=== PATIENT | female | born 1970 | race Two or more races ===

== ENCOUNTER 2018-08-10 18:39 | Emergency (ER) | payer MEDICAID ==
[~2018-08-10] VITALS: Ht 160 cm; Wt 65.8 kg
--- NOTE | 2018-08-10 18:45 | NUR ---
ED Nurse Note: Pt was not being assessed by nurse and went down to CT.
--- NOTE | 2018-08-10 19:06 | NUR ---
ED Nurse Note: Pt came from CT in stable condition.
--- NOTE | 2018-08-10 19:21 | NUR ---
ED Nurse Note: Pt from home BIBA c/o of fall. Pt states that she tripped and fell. Pt denies KO and states that she is not on blood thinner. Pt is AAOx4 respirations are even and unlabored
--- NOTE | 2018-08-10 19:24 | NUR ---
HAND-OFF: Report given to NATHALIE Perkins.
--- NOTE | 2018-08-10 19:38 | NUR ---
ED Nurse Note: Patient is alert and oriented x4has pain in the head 10/10. Patient has at bedside.
[2018-08-10] MEDS ORDERED: Acetaminophen 500mg (ES) tab ORAL ONE (20:00)
[2018-08-10] MEDS ORDERED: Lidocaine 2% MPF 5ml Vial INJ ONE (20:30)
[2018-08-10 20:40] VITALS: BP 120/64
--- NOTE | 2018-08-10 21:53 | Emergency Room Report ---
History of Present Illness General Chief Complaint: Head Injury Source: Patient Present Illness HPI Patient states that she was walking and missed her step on the curb and fell and hit her head on a fence. Denies neck pain. She has no other injuries or complaints. She has pain at the location of the laceration on her scalp. Allergies: Coded Allergies: No Known Allergies (Unverified , 08/10/18) Patient History Past Medical History: see triage record, HTN Social History: Denies: smoking, alcohol use, drug use Now: No Reviewed Nursing Documentation: PMH: Agreed; PSxH: Agreed Nursing Documentation-PMH Past Medical History: No Stated History Review of Systems All Other Systems: negative except mentioned in HPI Physical Exam Vital Signs Date Time Temp Pulse Resp B/P (MAP) Pulse Ox O2 Delivery O2 Flow Rate FiO2 08/10/18 18:20 98.8 82 18 140/82 99 Room Air Sp02 EP Interpretation: reviewed, normal General Appearance: no apparent distress, alert, GCS 15, non-toxic Head: other - 2.5 cm laceration on R. parietal region. Eyes: bilateral eye normal inspection, bilateral eye PERRL ENT: hearing grossly normal, normal pharynx, no angioedema, normal voice Neck: full range of motion, supple/symm/no masses Respiratory: chest non-tender, lungs clear, normal breath sounds, no respiratory distress, no retraction, no accessory muscle use, speaking full sentences Cardiovascular #1: regular rate, rhythm, no edema Gastrointestinal: normal bowel sounds, non tender, soft, non-distended, no guarding, no rebound Rectal: deferred Musculoskeletal: back normal, gait/station normal, normal range of motion, non- tender Neurologic: alert, oriented x3, responsive, motor strength/tone normal, sensory intact, speech normal Psychiatric: judgement/insight normal, memory normal, mood/affect normal, no suicidal/homicidal ideation Skin: well hydrated, other - See above in Head. Medical Decision Making Diagnostic Impression: Primary Impression: Scalp laceration Additional Impressions: Fall Closed head injury ER Course This patient suffered a scalp laceration. The patient underwent CT of the head and there was no evidence of intracranial bleed. Overall, the patient's evaluation was benign. The patient was instructed to have the eren removed in 7-10 days. The patient states her tetanus is up-to-date so this was not updated. The patient is given return precautions and follow-up instructions. CT/MRI/US Diagnostic Results CT/MRI/US Diagnostic Results : Imaging Test Ordered: CT head Impression No acute findings. No ICB, mass effect or edema. Last Vital Signs Date Time Temp Pulse Resp B/P (MAP) Pulse Ox O2 Delivery O2 Flow Rate FiO2 08/10/18 20:40 98.8 65 15 120/64 100 Room Air Status: improved Disposition: HOME, SELF-CARE Condition: Improved Arabella Urias DO Aug 10, 2018 21:53
[2018-08-10] MEDS ORDERED: IBUPROFEN800 MG ORAL (21:55)
[2018-08-10] MEDS ORDERED: ACETAMINOPHEN500 M3 ORAL (21:55)
[2018-08-10 22:09] VITALS: BP 114/79
--- NOTE | 2018-08-10 22:09 | NUR ---
ED Nurse Note: Patient is cleared for DC by ERMD, no complaints of pain, ambulatory with steady gait, A&Ox4, ID band removed, IV removed. Patient was accomapnied by upon departure.
--- NOTE | 2018-08-11 12:01 | Diagnostic Imaging Report ---
Indications: Head pain, status post fall Technique: Spiral acquisitions obtained through the brain. Angled axial and coronal 5 x 5 mm slices were reconstructed. Total dose length product 1354 mGycm. CTDI vol(s) 70 mGy. Dose reduction achieved using automated exposure control Comparison: None. Findings: There is evidence of right high frontal scalp soft tissue laceration. No underlying calvarial fracture demonstrated. The visualized sinuses are clear. The mastoids are clear. The orbits are unremarkable. No acute intracranial hemorrhage nor edema, mass effect, nor midline shift. Normal barrientos-white differentiation. Normal-sized ventricles and extra-axial CSF spaces. Impression: Evidence of right scalp laceration in the frontal region. Negative for acute intracranial bleed or mass effect This agrees with the preliminary interpretation provided overnight by Dr. Montoya The CT scanner at [facility] is accredited by the [employer] and the scans are performed using protocols designed to limit radiation exposure to as low as reasonably achievable to attain images of sufficient resolution adequate for diagnostic evaluation.
== END 2018-08-10 22:10 | disposition home or self-care (01) ==
LOC: EDBD 18:39 → EMR 19:06
DX: S01.01XA Laceration without foreign body of scalp, initial encounter (principal); W10.1XXA Fall (on)(from) sidewalk curb, initial encounter; Y92.480 Sidewalk as the place of occurrence of the external cause; I10 Essential (primary) hypertension; R51 Headache
CPT/HCPCS: 12001; 70450; 99284; Z7502